=== PATIENT | female | born 1970 | race American Indian/Alaskan Native ===

== ENCOUNTER 2017-08-05 09:16 | Outpatient (CLI) | payer BC | END 2017-08-05 09:17 | disposition home or self-care (01) | LOC: LAB 09:16 | PROVIDERS: ATTEND Obstetrics & Gynecology | DX: Z01.419 Encounter for gynecological examination (general) (routine) without abnormal findings (principal) | CPT/HCPCS: 36415 ==

== ENCOUNTER 2017-08-06 09:06 | Outpatient (CLI) | payer BC | END 2017-08-06 09:07 | disposition home or self-care (01) | LOC: LAB 09:06 | PROVIDERS: ATTEND Obstetrics & Gynecology | DX: Z71.89 Other specified counseling (principal) | CPT/HCPCS: 36415 ==

== ENCOUNTER 2017-08-19 15:10 | Outpatient (CLI) | payer BC, OTHER | END 2017-08-19 15:11 | disposition home or self-care (01) | LOC: LABHHL 15:10 | PROVIDERS: ATTEND Specialist | DX: N60.02 Solitary cyst of left breast (principal); N63.20 Unspecified lump in the left breast, unspecified quadrant | CPT/HCPCS: 88305 ==

== ENCOUNTER 2018-03-12 11:17 | Outpatient (CLI) | payer BC ==
--- NOTE | 2018-03-13 07:52 | Ultrasound Report ---
ULTRASOUND PELVIC COMPLETE ULTRASOUND TRANSVAGINAL HISTORY: Fibroid uterus. COMPARISON: 08/16/13. TECHNIQUE: Transabdominal and transvaginal ultrasound with color doppler interrogation. FINDINGS: Uterus: The uterus is anteverted. The uterus is moderately enlarged measuring 13.7 x 7.2 x 8.3 cm. Approximately 8 uterine fibroids are identified scattered throughout the myometrium. The largest fibroid measures 4.8 x 4.8 cm in the left posterolateral wall. The remaining fibroids range from 1.0 cm in diameter to 3.1 cm in diameter. Many of these have a small submucosal component. The cervix is unremarkable. Endometrium: Within normal limits measuring 5 mm. Right ovary: Not visualized. Left ovary: Not visualized. No pelvic fluid or mass is identified. Normal color doppler interrogation. IMPRESSION: Uterine fibroid disease as described. The ovaries are not visualized.
== END 2018-03-12 11:18 | disposition home or self-care (01) ==
LOC: US 11:17
PROVIDERS: ATTEND Obstetrics & Gynecology
DX: D25.0 Submucous leiomyoma of uterus (principal)
CPT/HCPCS: 76830; 76856

== ENCOUNTER 2018-04-09 15:25 | Outpatient (CLI) | payer BC ==
--- NOTE | 2018-04-10 08:59 | Magnetic Resonance Report ---
FINAL REPORT EXAM: MR PELVIS WO/W CON HISTORY: PELVIC PAIN, BLEEDING TECHNIQUE: Multisequence, multiplanar MR imaging is obtained through the pelvis prior and subsequent to intravenous administration of 15 cc MultiHance gadolinium contrast PRIORS: None. FINDINGS: Lobular anteverted uterus measures approximately 10.5 x 7.3 x 7.8 cm. Numerous fibroids are present throughout the uterus, which are predominantly transmural and the largest of which is in the left para midline anterior myometrium of the uterine body measuring approximately 5 x 5 x 4.5 cm on series 9, image 25 and sagittal series 10, image 13. Anteriorly projecting sub serosal fibroids are present near the lower uterine segment measuring up to 2.5 cm on coronal series 9, image 22 and extending anterior and left lateral from the fundus measuring up to 3.4 cm on coronal series 9, image 31. The endometrium is largely distorted due to fibroid mass effect but measures up to approximately 1 cm in thickness on sagittal series 10, image 18. Trace endometrial fluid is present, which accounts for an additional 2-3 millimeters in thickness. The urethra, vagina and cervix are unremarkable. Mild mass effect on the urinary bladder. No significant free fluid in the pelvis. Parametrial soft tissues are unremarkable. No pelvic lymphadenopathy. A T2 intense nonenhancing functional right ovarian versus paraovarian simple cyst measures up to about 3 cm. Bony pelvis marrow signal is unremarkable. Imaged joint spaces are unremarkable. Paraspinal soft tissues are without focal abnormality to include muscles adjacent to the pelvis. Major vasculature of the pelvis is normal in caliber. IMPRESSION: Lobular and distorted uterus is due to multiple, greater than 10, fibroids, which are predominantly transmural and measure up to 5 cm in greatest dimension. Subserosal fibroids are also present. There is endometrial distortion and mild mass effect on the urinary bladder.
== END 2018-04-09 15:26 | disposition home or self-care (01) ==
LOC: MRI 15:25
PROVIDERS: ATTEND Radiology Vascular & Interventional Radiology
DX: D25.2 Subserosal leiomyoma of uterus (principal); N32.9 Bladder disorder, unspecified
CPT/HCPCS: 72197; A9577

== ENCOUNTER 2018-08-04 08:57 | Outpatient (CLI) | payer BC ==
--- NOTE | 2018-08-04 10:51 | Mammography Report ---
BILATERAL DIGITAL SCREENING MAMMOGRAM with CAD: 08/04/18 08:57:00 CLINICAL: Routine screening.History of cyst aspirations. COMPARISON:02/02/18 FINDINGS: The breasts are heterogeneously dense, which may obscure small masses. Diffuse bilateral calcifications with benign morphology are stable.No architectural distortion or suspicious calcifications.A left partially circumscribed focal asymmetry requires additional imaging. IMPRESSION: Left asymmetry requiring further workup. BI-RADS CATEGORY: 0 -- Additional Imaging Evaluation Required RECOMMENDATION: Recall for left , spot compression CC and MLO views and ultrasound if needed. ACR BI-RADS MAMMOGRAPHIC CODES: 0 = Needs additional imaging evaluation; 1 = Negative; 2 = Benign; 3 = Probably benign; 4 = Suspicious; 5 = Malignant; 6 = Known biopsy-proven malignancy COMMENT: 1. Dense breast tissue, i.e., adenosis, fibrocystic changes, etc., may obscure an underlying neoplasm. 2. Approximately 10% of cancers are not detected with mammography. 3. A negative mammography report should not delay biopsy if a clinically suspicious mass is present. COMMENT: Patient follow-up letters are generated via our [employer] application.
--- NOTE | 2018-08-04 11:31 | Mammography Report ---
Left DIGITAL DIAGNOSTIC MAMMOGRAM : 08/04/18 08:57:00 CLINICAL: Recalled for asymmetry. COMPARISON:Same day screening FINDINGS: Additional mammographic views were performed and are negative.Satisfactory effacement of the previously identified asymmetry. IMPRESSION: No mammographic evidence of malignancy. BI-RADS CATEGORY: 2 - - Benign RECOMMENDATION: Routine mammographic screening in one year. ACR BI-RADS MAMMOGRAPHIC CODES: 0 = Needs additional imaging evaluation; 1 = Negative; 2 = Benign; 3 = Probably benign; 4 = Suspicious; 5 = Malignant; 6 = Known biopsy-proven malignancy COMMENT: 1. Dense breast tissue, i.e., adenosis, fibrocystic changes, etc., may obscure an underlying neoplasm. 2. Approximately 10% of cancers are not detected with mammography. 3. A negative mammography report should not delay biopsy if a clinically suspicious mass is present. COMMENT: Patient follow-up letters are generated via our [employer] application.
== END 2018-08-04 08:58 | disposition home or self-care (01) ==
LOC: SPVWC 08:57
PROVIDERS: ATTEND Surgery
DX: Z12.31 Encounter for screening mammogram for malignant neoplasm of breast (principal); Z86.2 Personal history of diseases of the blood and blood-forming organs and certain disorders involving the immune mechanism
CPT/HCPCS: 77067

== ENCOUNTER 2018-11-30 09:54 | Outpatient (CLI) | payer BC ==
[2018-11-30 10:22] LABS: Basophils # (Auto) 0.1 K/mm3 (0.0-0.1); Basophils % (Auto) 1.1 % (0.0-1.8); Eosinophils # (Auto) 0.5 K/mm3 (0.0-0.4); Eosinophils % (Auto) 9.3 % (0.0-4.3); Hematocrit 34.4 % (30.3-42.9); Hemoglobin 11.1 gm/dl (10.1-14.3); Lymphocytes # (Auto) 1.6 K/mm3 (1.2-5.4); Lymphocytes % (Auto) 28.4 % (13.4-35.0); Mean Corpuscular HGB Conc 32 % (30-34); Monocytes # (Auto) 0.4 K/mm3 (0.0-0.8); Monocytes % (Auto) 6.9 % (0.0-7.3); Platelet Count 216 K/mm3 (140-440); Red Blood Count 4.92 M/mm3 (3.65-5.03)
[2018-11-30 10:23] LABS: Mean Corpuscular Volume 70 fl (79-97)
[2018-11-30 10:53] LABS: Alanine Aminotransferase 15 units/L (7-56); Albumin 4.1 g/dL (3.9-5); BUN/Creatinine Ratio 13; Blood Urea Nitrogen 9 mg/dL (7-17); Calcium 8.6 mg/dL (8.4-10.2); Chol/HDL Ratio 3.26 %; HDL Cholesterol 57 mg/dL (40-59); Hemolysis Index 0; LDL Cholesterol,Direct 124 mg/dL (50-130)
[2018-11-30 11:00] LABS: Free T4 (Free Thyroxine) 0.95 ng/dL (0.76-1.46)
[2018-12-04 13:27] LABS: Vitamin D, 25-OH, D2 7 ng/mL
== END 2018-11-30 09:55 | disposition home or self-care (01) ==
LOC: LAB 09:54
PROVIDERS: ATTEND Internal Medicine
DX: Z00.00 Encounter for general adult medical examination without abnormal findings (principal)
CPT/HCPCS: 36415; 80053; 80061; 82306; 84439; 84443; 85025

== ENCOUNTER 2019-02-24 10:27 | Outpatient (CLI) | payer BC ==
--- NOTE | 2019-02-24 15:34 | Mammography Report ---
RIGHT DIGITAL DIAGNOSTIC MAMMOGRAM WITH CAD RIGHT COMPLETE BREAST ULTRASOUND INDICATION: Right breast pain. TECHNIQUE: Digital right mammographic imaging was performed. Lateral and exaggerated CC views were o btained. Magnification views were obtained. Complete ultrasound of all four (4) quadrants was perform ed. This examination was interpreted with the benefit of Computer-Aided Detection (CAD) analysis. COMPARISON: 02/02/2018 FINDINGS: Breast Density: The breast is heterogeneously dense, which may obscure small masses and the upper out er quadrant has become more dense since the last mammogram. Scattered calcifications have benign morphology. No distinct mass or architectural distortion. Recomm end an outer asymmetry on the CC view is more dense than on the prior mammogram. Ultrasound Findings: Complete sonographic evlauation of all 4 quadrants and retroareolar region was p erformed. Ultrasound demonstrated an area of vague shadowing at 10:00 10 cm from the nipple which c orrelates with an area of pain. IMPRESSION: Suspicious increased density of the upper outer right breast and suspicious shadowing in the right breast at 10:00 10 cm from the nipple. Recommend ultrasound guided needle biopsy to exclude malignancy. I discussed the findings and the recommendation for needle biopsy with the patient at the time of the examination. BI-RADS Category 4: Suspicious for Malignancy. A "normal" or negative report should not discourage follow up or biopsy of a clinically significant f inding. A written summary of these findings will be mailed to the patient. The patient will be entered into a mammography reporting system which will generate a reminder letter for the patient's next appointmen t at the appropriate interval. FURTHER INFORMATION: According to the [employer], yearly mammograms are recommend ed starting at age 40 and continuing as long as a woman is in good health. Breast MRI is recommended for women with an approximately 20-25% or greater lifetime risk of breast cancer, including women wi th a strong family history of breast or ovarian cancer and women who have been treated for Hodgkin's disease. Signer Name: Rohit Ewing MD Signed: 02/24/2019 3:30 PM Workstation Name: [id number]
== END 2019-02-24 10:28 | disposition home or self-care (01) ==
LOC: SPVWC 10:27
PROVIDERS: ATTEND Surgery
DX: N64.4 Mastodynia (principal)

== ENCOUNTER 2019-03-04 14:35 | Outpatient (CLI) | payer BC ==
--- NOTE | 2019-03-04 16:01 | Ultrasound Report ---
ULTRASOUND-GUIDED NEEDLE CORE BIOPSY RIGHT BREAST WITH CLIP PLACEMENT CLINICAL: A suspicious shadowing lesion at 10:00 10 cm from the nipple. FINDINGS: The procedure was explained to the patient and informed consent was obtained. Ultrasound demonstrated the previously identified lesion. I marked the breast with a felt tip marker and a timeout was called. The skin was prepped with Chloro -Prep and anesthetized with 1% lidocaine. Needle core biopsy was performed through small dermatotomy using ultrasound guidance, 2% lidocaine wi th epinephrine for deep anesthesia and a 14-gauge Achieve biopsy device. 5 cores were obtained and pl aced in formalin. A clip was deployed within the lesion. The patient tolerated the procedure well and there were no apparent complications. Hemostasis was ach ieved with minimal effort and a sterile dressing was applied. A post procedure mammogram demonstrated concordant clip deployment. She left the department in good c ondition and was given instructions for wound care and follow-up. IMPRESSION: Uncomplicated ultrasound guided needle core biopsy with clip placement right breast. Signer Name: Rohit Ewing MD Signed: 03/04/2019 3:56 PM Workstation Name: [id number]
--- NOTE | 2019-03-04 16:03 | Mammography Report ---
RIGHT DIGITAL DIAGNOSTIC MAMMOGRAM CLINICAL: For clip placement after ultrasound-guided needle biopsy. COMPARISON: 02/24/2019 FINDINGS: A biopsy clip is identified in the upper outer quadrant and correlates with the previously identified asymmetry. IMPRESSION: Concordant clip deployment. Signer Name: Rohit Ewing MD Signed: 03/04/2019 3:59 PM Workstation Name: [id number]
== END 2019-03-04 14:36 | disposition home or self-care (01) ==
LOC: SPVWC 14:35
PROVIDERS: ATTEND Surgery
DX: N60.21 Fibroadenosis of right breast (principal); N64.89 Other specified disorders of breast; Z79.899 Other long term (current) drug therapy; D64.9 Anemia, unspecified; Z98.890 Other specified postprocedural states; Z72.89 Other problems related to lifestyle
CPT/HCPCS: 19083; 77065; 88305; A4648

== ENCOUNTER 2019-08-10 09:50 | Outpatient (CLI) | payer BC ==
--- NOTE | 2019-08-10 11:03 | Mammography Report ---
BILATERAL DIGITAL DIAGNOSTIC MAMMOGRAM WITH CAD 08/10/2019 RIGHT LIMITED BREAST ULTRASOUND INDICATION: Follow-up after benign right biopsy 03/04/2019 with nonspecific pathology. ABNORMAL MAMMOG BERNADETTE TECHNIQUE: Digital bilateral mammographic imaging was performed. Limited ultrasound was performed. T his examination was interpreted with the benefit of Computer-Aided Detection (CAD) analysis. COMPARISON: 08/04/2018 and 02/24/2019 mammograms and 02/24/2019 right breast ultrasound. FINDINGS: Breast Density: The breasts are heterogeneously dense, which may obscure small masses. MAMMOGRAPHIC FINDINGS: There is no evidence of dominant mass, suspicious calcifications or architectu ral distortion in either breast. A right upper outer biopsy clip correlates with the site of the rece nt biopsy. ULTRASOUND FINDINGS: Targeted ultrasound evaluation was performed of the area of interest. Ultrasou nd demonstrated stable shadowing at 10:00 11 cm from the nipple. This correlates with the site of imelda ign biopsy. IMPRESSION: Negative mammogram and stable right breast ultrasound. Follow up recommendation: Routine yearly BI-RADS Category 2: Benign. A "normal" or negative report should not discourage follow up or biopsy of a clinically significant f inding. A written summary of these findings will be mailed to the patient. The patient will be entered into a mammography reporting system which will generate a reminder letter for the patient's next appointmen t at the appropriate interval. According to the [employer], yearly mammograms are recommended starting at age 40 and continuing as long as a woman is in good health. Breast MRI is recommended for women with an nancy roximately 20-25% or greater lifetime risk of breast cancer, including women with a strong family his tory of breast or ovarian cancer and women who have been treated for Hodgkin's disease. Signer Name: Rohit Ewing MD Signed: 08/10/2019 10:59 AM Workstation Name: [id number]
== END 2019-08-10 09:51 | disposition home or self-care (01) ==
LOC: SPVWC 09:50
PROVIDERS: ATTEND Surgery
DX: N60.21 Fibroadenosis of right breast (principal); Z80.3 Family history of malignant neoplasm of breast
CPT/HCPCS: 77066

== ENCOUNTER 2020-08-15 10:10 | Outpatient (CLI) | payer BC ==
--- NOTE | 2020-08-16 07:02 | Mammography Report ---
DIGITAL SCREENING MAMMOGRAM WITH CAD, 08/15/2020 CLINICAL INFORMATION / INDICATION: Routine screening mammography. SCREENING MAMMO Z12.31 TECHNIQUE: Digital bilateral 2D mammography was obtained in the craniocaudal and mediolateral obliqu e projections. This examination was interpreted with the benefit of Computer-Aided Detection analysis . COMPARISON: 08/10/2019 FINDINGS: Breast Density: The breasts are heterogeneously dense, which may obscure small masses. No dominant mass, suspicious calcifications, or architectural distortion in either breast. Multiple scattered calcifications are again seen throughout both breasts in the breast density overal l has slightly increased since the previous exam. A biopsy clip is again noted on the right. Largely unchanged nodular densities in the breasts, likely fibroglandular or fibrocystic change. IMPRESSION: No mammographic evidence of malignancy. Follow up recommendation: Routine yearly BI-RADS Category 2: Benign. A "normal" or negative report should not discourage follow up or biopsy of a clinically significant f inding. A written summary of these findings will be mailed to the patient. The patient will be entered into a mammography reporting system which will generate a reminder letter for the patient's next appointmen t at the appropriate interval. The [employer] recommends yearly mammograms starting at age 40 and continuing as l harry as a woman is in good health. Breast MRI is recommended for women with an approximate 20-25% or greater lifetime risk of breast cancer, including women with a strong family history of breast or ova sandrita cancer or who have been treated for Hodgkin's disease. Signer Name: Melo Koo MD Signed: 08/16/2020 6:57 AM Workstation Name: [id number]
== END 2020-08-15 10:11 | disposition home or self-care (01) ==
LOC: SPVWC 10:10
PROVIDERS: ATTEND Surgery
DX: Z12.31 Encounter for screening mammogram for malignant neoplasm of breast (principal)
CPT/HCPCS: 77067

== ENCOUNTER 2020-08-30 08:16 | Outpatient (CLI) | payer BC | END 2020-08-30 08:17 | disposition home or self-care (01) | LOC: CARD 08:16 | PROVIDERS: ATTEND Internal Medicine | DX: I51.7 Cardiomegaly (principal) | CPT/HCPCS: 78452; 93017; 93306; A9502 ==

== ENCOUNTER 2021-02-13 16:00 | Outpatient (CLI) | payer BC | END 2021-02-13 16:01 | disposition home or self-care (01) | LOC: LAB 16:00 | PROVIDERS: ATTEND Obstetrics & Gynecology | DX: Z01.419 Encounter for gynecological examination (general) (routine) without abnormal findings (principal) | CPT/HCPCS: 36415 ==

== ENCOUNTER 2021-02-22 10:43 | Outpatient (CLI) | payer BC ==
--- NOTE | 2021-02-22 14:09 | Ultrasound Report ---
ULTRASOUND PELVIS INDICATION / CLINICAL INFORMATION: ABNORMAL UTERINE. TECHNIQUE: Transabdominal and Transvaginal. Duplex Color Doppler used: Yes. COMPARISON: MRI pelvis 03/2018 and pelvic ultrasound 02/2018. FINDINGS: UTERUS: - Appearance: Leiomyomatous. - Size (cm): 14.2 x 11.6 x 10.4 cm. - Endometrial Complex (if present): No significant abnormality.. Thickness in cm (if measured) = 0.1 cm. - Mass or cyst: Multiple uterine fibroids are again visualized. The largest today is posterior subser osal and measures 7.4 x 8.7 x 7.9 cm, previously 4.8 cm. - Additional findings: None. RIGHT ADNEXA: The right ovary is not visualized. No significant adnexal abnormality. LEFT ADNEXA: The left ovary is not visualized. No significant adnexal abnormality. URINARY BLADDER: No significant abnormality. FREE FLUID: None. ADDITIONAL FINDINGS: None. IMPRESSION: 1. Enlarged, leiomyomatous uterus. Interval increase in size of largest fibroid. 2. Neither ovary is identified. No significant adnexal abnormality. Scribed by: Joselyn Rosas RDMS, RVT Scribed: 02/22/2021 12:19 PM I have reviewed the images, agree with this report, and edited this report as needed. Signer Name: Davey To MD Signed: 02/22/2021 2:02 PM Workstation Name: [id number]
== END 2021-02-22 10:44 | disposition home or self-care (01) ==
LOC: US 10:43
PROVIDERS: ATTEND Obstetrics & Gynecology
DX: D25.9 Leiomyoma of uterus, unspecified (principal); N93.9 Abnormal uterine and vaginal bleeding, unspecified; N85.2 Hypertrophy of uterus
CPT/HCPCS: 76830; 76856

== ENCOUNTER 2021-07-12 09:28 | Outpatient (CLI) | payer BC ==
[2021-07-12 09:57] LABS: Basophils # (Auto) 0.1 K/mm3 (0.0-0.1); Eosinophils # (Auto) 0.5 K/mm3 (0.0-0.4); Eosinophils % (Auto) 8.6 % (0.0-4.3); Hematocrit 41.6 % (30.3-42.9); Hemoglobin 13.7 gm/dl (10.1-14.3); Lymphocytes # (Auto) 1.8 K/mm3 (1.2-5.4); Lymphocytes % (Auto) 31.5 % (13.4-35.0); Mean Corpuscular HGB Conc 33 % (30-34); Mean Corpuscular Volume 79 fl (79-97); Monocytes # (Auto) 0.4 K/mm3 (0.0-0.8); Monocytes % (Auto) 7.1 % (0.0-7.3); Platelet Count 226 K/mm3 (140-440); Red Blood Count 5.24 M/mm3 (3.65-5.03); Red Cell Distribution Width 15.1 % (13.2-15.2)
[2021-07-12 10:21] LABS: Alanine Aminotransferase 14 units/L (7-56); Albumin 4.2 g/dL (3.9-5); Blood Urea Nitrogen 9 mg/dL (7-17); Calcium 9.5 mg/dL (8.4-10.2); Chol/HDL Ratio 3.47 %; HDL Cholesterol 55 mg/dL (40-59); Hemolysis Index 1; LDL Cholesterol,Direct 134 mg/dL (50-130)
[2021-07-12 10:22] LABS: BUN/Creatinine Ratio 13
[2021-07-12 10:33] LABS: Free T4 (Free Thyroxine) 0.96 ng/dL (0.76-1.46)
== END 2021-07-12 09:29 | disposition home or self-care (01) ==
LOC: LAB 09:28
PROVIDERS: ATTEND Internal Medicine
DX: Z00.00 Encounter for general adult medical examination without abnormal findings (principal)
CPT/HCPCS: 36415; 80053; 80061; 84439; 84443; 85025

== ENCOUNTER 2021-09-19 13:25 | Outpatient (CLI) | payer BC ==
--- NOTE | 2021-09-19 16:35 | Mammography Report ---
DIGITAL SCREENING MAMMOGRAM WITH TOMOSYNTHESIS WITH CAD, 09/19/2021 CLINICAL INFORMATION / INDICATION: Screening TECHNIQUE: Digital bilateral 2D and 3D mammography with tomosynthesis was obtained in the craniocaud al and mediolateral oblique projections. Computer-Aided Detection (CAD) analysis was used for interp retation of this study. COMPARISON: 08/15/2020 FINDINGS: Breast Density: The breasts are heterogeneously dense, which may obscure small masses. No dominant mass, suspicious calcifications, or architectural distortion in either breast. Right biopsy changes are again seen. Diffuse bilateral calcifications are not significantly changed. Benign-appearing nodularity is again seen. IMPRESSION: No mammographic evidence of malignancy. Follow up recommendation: Routine yearly BI-RADS Category 2: BENIGN. A "normal" or negative report should not discourage follow up or biopsy of a clinically significant f inding. A written summary of these findings will be mailed to the patient. The patient will be entered into a mammography reporting system which will generate a reminder letter for the patient's next appointmen t at the appropriate interval. The [employer] recommends yearly mammograms starting at age 40 and continuing as l harry as a woman is in good health. Breast MRI is recommended for women with an approximate 20-25% or greater lifetime risk of breast cancer, including women with a strong family history of breast or ova sandrita cancer or who have been treated for Hodgkin's disease. Signer Name: Addi Stout MD Signed: 09/19/2021 4:31 PM Workstation Name: [id number]
== END 2021-09-19 13:26 | disposition home or self-care (01) ==
LOC: SPVWC 13:25
PROVIDERS: ATTEND Surgery
DX: Z12.31 Encounter for screening mammogram for malignant neoplasm of breast (principal)
CPT/HCPCS: 77063; 77067